=== PATIENT | male | born 1955 | race Caucasian/White ===

== ENCOUNTER 2017-02-26 15:07 | Observation (INO) ==
--- NOTE | 2017-02-26 18:08 | Hospitalist History & Physical ---
Assessment and Plan - Time spent with patient Time spent with patient: Greater than 30 minutes (1) Visual loss Status: Acute Assessment and plan: Patient developed right visual defect last Friday. He was seen by his machine stuffer automatic yesterday and referred for possible neurologic evaluation and MRI. He was seen [facility] and transferred here for further care. Will obtain MRI of the brain, carotid Dopplers and echocardiogram along with urology consultation. Will begin full dose aspirin at this time. Further workup performed based on patient response results pending database. He should be able to be discharged within 24 hours. Current Visit: Yes (2) Peripheral neuropathy Status: Chronic Assessment and plan: Stable and continue current medical regimen. Current Visit: Yes (3) Hypothyroidism Status: Chronic Assessment and plan: Continue current thyroid replacement therapy. Current Visit: Yes (4) Smoker Status: Acute Assessment and plan: Recommend smoking cessation. Will supply a nicotine patch. Current Visit: Yes History of Present Illness Chief complaint: Decreased vision right eye History of present illness: Mr. Orr is a 61 year old white male who noted some visual difficulty on his right eye last Friday. He saw his eye doctor yesterday and was told that he needed to go see a neurologist for possible embolic stroke. He went to the emergency department at [facility] today where he was evaluated and transferred here for further care. CT had was reported as normal. Patient denies any headaches, fever, chills, chest pain, shortness breath, palpitations , focal motor weakness or paresthesias, urinary frequency incontinence urgency or hesitancy, bowel or bladder incontinence, melena, hematochezia, hematemesis, dysuria, seizure, syncope. He states he does have a peripheral neuropathy for which he takes Neurontin, history of Graves' disease and is treated with thyroid replacement and he also takes aspirin which is either a baby aspirin or full strength depending on what he has. Home medications were reviewed in the room with the patient. Allergies Allergy/AdvReac Type Severity Reaction Status Date / Time No Known Allergies Allergy Verified 02/26/17 18:02 Medical,Surgical,& Family Hx - Medical History Cardio: No history of: Cardiac Dysrhythmia, Hypertension Neurology: History of: Peripheral Neuropathy, TIA HEENT: History of: Eye Problem (cataract surgery 2011) Endocrine: History of: Thyroid Disorder Gastrointestinal: History of: GI Problems (lactose intolerant) - Surgical History Surgical History: noncontributory - Family History Family History: Reports;: Family Cancer (renal ca mom,), Family Heart Disease ( grandfather), Family Hypertension (mom), Family Stroke (grandfather) Denies;: Family Anesthesia Reaction, Family Diabetes - Social History Smoking Status: Current every day smoker Frequency of Alcohol Use: None Type of Drug Use: None 12 point system: reviewed and no additional remarkable complaints except as stated Exam - Constitutional Vitals: Period Temp Pulse Resp BP Sys/Craig Pulse Ox Last 24 Hr 97.8 F 73 20 154/90 97 General appearance: no acute distress - Head Head exam: Present: normocephalic, atraumatic - Eye Eye exam: Present: EOMI. Absent: scleral icterus Pupils: Present: AMELIA - ENT ENT exam: Present: normal oropharynx - Neck Neck exam: Present: normal inspection. Absent: lymphadenopathy, meningismus, tenderness, thyromegaly - Respiratory Respiratory exam: Present: clear to auscultation bilaterally. Absent: rales, rhonchi, wheezes - Cardiovascular Cardiovascular exam: Present: regular rate and rhythm. Absent: carotid bruit, gallop, JVD, systolic murmur, tachycardia - GI/Abdominal GI/Abdominal exam: Present: normal bowel sounds, soft. Absent: distended, mass , tenderness, rebound - Extremities Exam Extremities exam: Absent: calf tenderness, edema - Back Exam Back exam: Present: normal inspection - Neurological Exam Neurological exam: Present: alert, oriented X3, CN II-XII intact. Absent: motor sensory deficit - Psychiatric Psychiatric exam: Present: normal affect, normal mood. Absent: agitated, anxious - Skin Skin exam: Present: warm, dry. Absent: erythema, rash Results - Labs Lab Results: I have reviewed the past 24 hour labs Labs: Laboratory studies from [facility] were reviewed.
[2017-02-26] MEDS ORDERED: ACETAMINOPHEN 325 MG TABLET PO PRN (18:34)
--- NOTE | 2017-02-26 19:55 | Ultrasound Report ---
US carotid duplex BI Indication: CVA, visual field defect. Comparison: None. Technique: Multiple longitudinal and transverse real-time sonographic images of the bilateral carotid arterial systems are obtained with grayscale, spectral, and color Doppler analysis. Findings: Peak systolic velocities within the right CCA, proximal ICA, and distal ICA are 69, 180, and 191 cm/s respectively. Peak systolic velocities within the left CCA, proximal ICA, and distal ICA are 61, 54, and 78 cm/s respectively. ICA/CCA ratios on the right and left are 2.8 and 1.3 respectively. Antegrade flow demonstrated within the bilateral vertebral arteries. Grayscale imaging demonstrates moderate bilateral atherosclerotic plaque, greater on the right. Plaque appears predominantly hypoechoic and noncalcified. IMPRESSION: Elevated velocities within the right internal carotid artery suggestive of 50-69% narrowing. No convincing sonographic evidence of significant (50% or greater) narrowing of the left cervical internal carotid artery. Indirect NASCET criteria utilized. PROCEDURE INTERPRETED AT [facility] DEPARTMENT OF RADIOLOGY Final Report Signed by: Dr Victor M Jones
[2017-02-26 20:40] LABS: Calcium 8.7 MG/DL (8.5-10.1); Potassium 3.9 MMOL/L (3.5-5.1)
[2017-02-26] MEDS ORDERED: ENOXAPARIN 40 MG/0.4 ML SYRINGE SUBCUT SCH (21:00)
[2017-02-27 05:26] LABS: Basophils # 0.1 10*3/uL (0.0-0.2); Eosinophils # 0.5 10*3/uL (0.0-0.87); Eosinophils % 6.2 % (0.00-10.9); Hematocrit 41.7 VOL% (42.0-52.0); Immature Granulocytes % 0.4 %; Immature Granulocytes Absolute 0.03 #; Lymphocytes # 2.4 10*3/uL (1.4-4.0); Lymphocytes % 29.2 % (21.2-54.2); Mean Corpuscular HGB Conc 33.6 GM/DL (32-36); Mean Corpuscular Hemoglobin 31 PG (27-34); Mean Corpuscular Volume 92.9 FL (87-102); Mean Platelet Volume 9.6 FL (9.6-12.0); Monocytes # 0.8 10*3/uL (0.11-0.8); Monocytes % 9.6 % (1.7-12.7); Neutrophils # 4.4 10*3/uL (1.4-7.4); Neutrophils % 53.6 % (38.7-73.9); Platelet Count 281 T/CUMM (130-400); Red Blood Count 4.49 MC/CUMM (3.8-5.5); Red Cell Distribution Width 12.6 % (9.3-17.3); White Blood Count 8.2 T/CUMM (4-12)
[2017-02-27 06:05] LABS: Calcium 8.4 MG/DL (8.5-10.1); Free T4 (Free Thyroxine) 0.43 NG/DL (0.76-1.46); Osmolality,Calculated 283.1 MOS/KG (273-304); Potassium 4.1 MMOL/L (3.5-5.1); Risk Ratio 7.52; Thyroid Stimulating Hormone 88.3 uIU/ml (0.358-3.74)
[2017-02-27] MEDS ORDERED: LEVOTHYROXINE 50 MCG TABLET PO SCH (07:00)
--- NOTE | 2017-02-27 07:17 | EKG Report ---
Stationary ECG Study [facility] Test Date: 02/27/2017 6:11:55 AM Pat Name: BETTY RASHEED Department: Room: 236 Gender: M Animal Surgeon: JENISE : 1955 Requested by: Rose Cyr Order Number: [id number] Reading MD: AKIN VAN Intervals [place] Rate: 64 P: 61 W[place]: 174 QRS: 22 QRSD: 93 T: 68 QT: 398 QTc: 407 Interpretive Statements SINUS RHYTHM Electronically Signed On 02-28-17 08:48:36 CDT by AKIN VAN [email or web address]
[2017-02-27] MEDS ORDERED: GABAPENTIN 100 MG CAPSULE PO SCH (09:00)
[2017-02-27] MEDS ORDERED: NICOTINE 21 MG/24 HR PATCH TRANSDERM SCH (09:00)
[2017-02-27] MEDS ORDERED: ASPIRIN 325 MG TABLET PO SCH (09:00)
--- NOTE | 2017-02-27 09:50 | Hospitalist Progress Note ---
Assessment and Plan (1) Sudden visual loss, right eye Status: Acute Assessment and plan: Impression: 1. Monocular vision loss Plan: I reviewed the ultrasound with radiology. The patient is already getting an MRI of the brain. We will add an MRA of the neck. He may have carotid stenosis. This note was completed using [employer] voice recognition software. There may be residential designer errors as a result. Current Visit: Yes Hospitalist: Subjective Interval history: Follow-up right sided monocular vision loss. The patient says that his vision is unchanged. He reports a history of "mini strokes" that began a couple of years ago. He describes almost daily events of transient hemiparesis and dysarthria that would last for less than 2 minutes, and then resolve spontaneously. He said that these episodes all resolved once he went to the chiropractor. He also gives a history of smoking about 5 packs of cigarettes per week. He reports a history of alcoholism, but has been sober for over 10 years. He is not hypertensive. He denies any history of diabetes or heart disease. Exam - Constitutional Vitals: Period Temp Pulse Resp BP Sys/Craig Pulse Ox Last 24 Hr 97.8 F-98.6 F 65-73 18-20 129-157/76-90 97-99 Vital signs are noted above. Heart is regular with no murmur or gallop. Lungs are clear with no rales or wheezes. His pupils are round and reactive. His extraocular muscles are normal. It was difficult to assess visual schumacher. He is awake and alert Results - Labs CBC & BMP: 02/27/17 05:05 02/27/17 05:05 Lab Results: I have reviewed the past 24 hour labs (Carotid ultrasound shows possible hemodynamically significant stenosis on the right side.)
--- NOTE | 2017-02-27 10:14 | Magnetic Resonance Report ---
MR head/brain wo con Indication: CVA. Visual field defect. Comparison: MRI brain 09/15/2013. Technique: Using 1.5 Rosalia magnet, multisequence multiplanar MR imaging of the brain was performed without the administration of intravenous contrast. Findings: A new focal area of restricted diffusion is noted within the anterior white matter of the left frontal lobe adjacent or within the anterior left gates radiata. This measures up to 11 mm in transverse dimension. This has corresponding increase in T2 and FLAIR signal suggesting subacute ischemia. Note is made that additionally present within white matter of the cerebral hemispheres, there are multiple focal areas of increased T2 and FLAIR signal some of which have central lacunar infarction or cystic encephalomalacia associated. With the exception of the described lesion, the next largest measures 7 mm and lies within the gates radiata. These lesions were not previously demonstrated on comparison imaging. Additional new focus of increased T2 and FLAIR signal is noted within the subcortical white matter of the right parietal lobe. There is no evidence of intracranial mass or hemorrhage. Ventricular system demonstrates no evidence of acute pathology. The basal cisterns appear patent. The arterial flow voids appear intact. The posterior fossa as well as cerebellum demonstrate no evidence of acute pathology. The orbits and globes demonstrate no evidence of acute pathology. Bilateral cataract surgery is suggested. The paranasal sinuses and mastoid air cells demonstrate no evidence of significant mucoperiosteal thickening. The calvarium as well as the soft tissues overlying the calvarium demonstrate no evidence of acute pathology. No unexpected areas of enhancement are demonstrated within the brain, meninges, or orbits. Impression: 1. Interval development of multiple focal white matter hyperintensities more prevalent within the left gates radiata. The larger lesions within the left gates radiata have central lacunar infarction and/or cystic encephalomalacia. The more anterior lesion has restricted diffusion associated. Additionally, new signal hyperintensity exist within the subcortical white matter of the right parietal lobe. Differential considerations could include embolic source of infarction as well as demyelinating disease. 02/27/2017 10:05 AM PROCEDURE INTERPRETED AT [facility] DEPARTMENT OF RADIOLOGY Final Report Signed by: Dr. Ambrosio Lopez
--- NOTE | 2017-02-27 10:55 | Magnetic Resonance Report ---
History: Right amaurosis fugax Date: 02/27/2017 Study: MRA neck without contrast Comparison exam: Carotid duplex ultrasound February 26, 2017 A 3-D [id number] MRA of the neck was performed without IV contrast on the 1.5 Rosalia magnet. In addition to axial source images, 3-D maximum intensity projection images were also archived and evaluated. The normal internal carotid arteries measure approximately 4.3 mm diameter based on the axial source images. There is 58% diameter reduction narrowing of the origin of the right internal carotid artery and 0% diameter reduction narrowing of the left internal carotid artery using NASCET criteria. There is no significant stenosis of the visualized distal common carotid arteries. There is 30-40% narrowing of the origin of the right external carotid artery and no significant narrowing of the origin of the left external carotid artery. There is antegrade flow in either vertebral artery. Impression: 58% diameter reduction narrowing of the origin of the right internal carotid artery PROCEDURE INTERPRETED AT [facility] DEPARTMENT OF RADIOLOGY Final Report Signed by: Dr. Kandis Mora
--- NOTE | 2017-02-27 14:23 | Discharge Summary ---
Hospital Course - Hospital Course Hospital Course: Discharge diagnosis: 1. Amaurosis fugax 2. Probable embolic cerebral infarction. The patient presented to the hospital across the street for evaluation of sudden visual loss of the right eye. He was transferred here because they did not have neurology coverage. When I saw the patient this morning, I found that that we did not have neurology coverage either. The patient had an MRA of the neck and a carotid ultrasound that suggested 50-60% stenosis of the right internal carotid artery. He also had an abnormal MRI of the brain, suggestive of possible subacute stroke. I discussed possible transfer, in view of the fact that we did not have neurology coverage here. The patient requested that I try [facility] in [place]. I spoke with Dr. Mobley, and he was kind enough to accept the patient in transfer. The patient is medically stable for transfer by ambulance. We will copy his radiographic studies and send them along with the patient to [place]. Medication reconciliation has been performed. He will be on a regular diet. Activity will be as prescribed by his treatment team in [place]. Diagnosis - Discharge Diagnosis (1) Sudden visual loss, right eye Status: Acute Discharge Plan - Discharge Data Disposition: Disch/Xfer-[facility] Term Hos Condition at Discharge: Stable - Discharge Medications Continue Aspirin [Aspirin EC] 81 mg PO DAILY Levothyroxine Tab [Synthroid Tab] 50 mcg PO DAILY@0700 Gabapentin 100 mg PO DAILY - Follow Up or Referral - Forms/Instructions Exam - Constitutional Vitals: Period Temp Pulse Resp BP Sys/Craig Pulse Ox Last 24 Hr 97.8 F-98.7 F 57-73 18-20 129-157/76-90 97-99 Please see examination documented from earlier today. Discharge Results Labs on day of discharge: Labs from last 24 hours 02/27/17 02/27/17 02/26/17 05:05 05:05 20:04 WBC 8.2 RBC 4.49 Hgb 14.0 Hct 41.7 L MCV 92.9 MCH 31 MCHC 33.6 RDW 12.6 Plt Count 281 MPV 9.6 Neut % (Auto) 53.6 Lymph % (Auto) 29.2 Winkler % (Auto) 9.6 Eos % (Auto) 6.2 Baso % (Auto) 1.0 H Neut # (Auto) 4.4 Lymph # (Auto) 2.4 Winkler # (Auto) 0.8 Eos # (Auto) 0.5 Baso # (Auto) 0.1 Immature Gran % 0.4 Nucleated RBC % 0.0 Immature Gran # 0.03 Nucleated RBCs # 0.00 Sodium 142 143 Potassium 4.1 3.9 Chloride 105 106 Carbon Dioxide 30 31 Anion Gap 11.1 9.9 BUN 15 10 Creatinine 1.20 1.00 GFR Calculation 76 94 BUN/Creatinine Ratio 12.00 10.00 Glucose 101 109 H Calculated Osmolality 283.1 284.0 Calcium 8.4 L 8.7 Triglycerides 350 H Cholesterol 203 H LDL Cholesterol 132.0 VLDL Cholesterol 70.0 HDL Cholesterol 27 L Heart Disease Risk Ratio 7.52 Free T4 0.43 L TSH 3rd Generation 88.300 H DS: Provider Date of admission: 02/26/17 16:53 Primary care physician: Gregg Arguelles Attending physician on admission: Jayesh Lester MD Consults: 02/26/17 18:34 Consult to Physician [CONS] Routine Comment: Consulting Provider: Tom Pritchard Consult Notification Comment: on bypass Discharging clinician: Jayesh Lester MD Expected date of discharge: 02/27/17
--- NOTE | 2017-02-27 14:39 | ECHO Report ---
[facility] Exam Date: 02/27/2017 08:08 Referring Physician: Technologist: jt Bernstein ARDMS, RVT Age: 61 Ht (in): 72 Wt (lb): 179 Gender: M Exam Location: [facility] Echo Indications: visual loss, peripheral neuropathy, hypothyroidism, smoker BP: 129 / 87 HR: 68 Rhythm: Sinus Technical Quality: IMPRESSIONS Left ventricular ejection fraction is estimated at 55 %. Mildly thickened mitral valve with trace mitral regurgitation. Mild aortic valve sclerosis without stenosis. Trace to mild tricuspid valve regurgitation. MEASUREMENTS (Male / Female) Normal Values 2D ECHO LV Diastolic Diameter PLAX 4.4 cm 4.2 - 5.9 / 3.9 - 5.3 cm LV Systolic Diameter PLAX 2.4 cm LV Fractional Shortening PLAX 44.9 % IVS Diastolic Thickness 1.2 cm 0.6 - 1.0 / 0.6 - 0.9 cm LVPW Diastolic Thickness 0.8 cm 0.6 - 1.0 / 0.6 - 0.9 cm RV Internal Dim ED PLAX 2.3 cm Aortic Root Diameter 3.2 cm LA Systolic Diameter LX 4.3 cm 3.0 - 4.0 / 2.7 - 3.8 cm DOPPLER TR Peak Velocity 227.0 cm/s TR Peak Gradient 20.6 mmHg FINDINGS Left Ventricle Normal left ventricular cavity size. Mild left ventricular hypertrophy. Left ventricular ejection fraction is estimated at 55 %. Right Ventricle The right ventricle is normal in size and function. Right Atrium The right atrium is normal in size. Left Atrium The left atrium is normal in size. Mitral Valve Mildly thickened mitral valve with trace mitral regurgitation. Aortic Valve Mild aortic valve sclerosis without stenosis. Tricuspid Valve Morphologically normal tricuspid valve. Trace to mild tricuspid valve regurgitation. Tricuspid regurgitation velocities suggest a PAP of 31 mmHg. Pulmonic Valve Morphologically normal pulmonic valve without significant stenosis. There is no pulmonic regurgitation. Pericardium Normal pericardium without effusion. Aorta Normal ascending aorta dimension. Leon Sanches (Electronically Signed) Final Date: 27 February 2017 14:39
[2017-02-27 16:29] VITALS: BP 145/87
== END 2017-02-27 16:20 | disposition hospice, home (50) ==
LOC: INTOOBSV 16:53 → N.2E 16:53
PROVIDERS: ADMIT Internal Medicine Geriatric Medicine; ATTEND Internal Medicine Geriatric Medicine